=== PATIENT | male | born 1960 | race Caucasian/White ===

== ENCOUNTER 2019-12-02 12:59 | Inpatient (IN) ==
[~2019-12-02 12:59] MED LIST: FAMOTIDINE 20 MG/2 ML VIAL IV ONE
[2019-12-02] MEDS ORDERED: SODIUM CHLORIDE 0.9% 1,000 ML IV STA (13:46)
[2019-12-02] MEDS ORDERED: AZITHROMYCIN INJ 500 MG in SODIUM CHLORIDE 0.9% 250 ML IV STA (13:47)
[2019-12-02] MEDS ORDERED: DEXAMETHASONE 4 MG/1 ML VIAL IV STA (13:48)
[2019-12-02] MEDS ORDERED: FAMOTIDINE 20 MG/2 ML VIAL IV STA (13:48)
[2019-12-02] MEDS ORDERED: CETIRIZINE 10 MG TABLET PO STA (13:48)
[2019-12-02 14:07] LABS: Basophils # 0.1 10*3/uL (0.0-0.2); Basophils % 0.3 % (0.0-0.8); Eosinophils % 0.1 % (0.00-10.9); Hematocrit 42.5 VOL% (42.0-52.0); Hemoglobin 14.4 GM/DL (14.0-18.0); Immature Granulocytes % 0.6 %; Immature Granulocytes Absolute 0.11 #; Lymphocytes # 1.4 10*3/uL (1.4-4.0); Lymphocytes % 7.8 % (21.2-54.2); Mean Corpuscular HGB Conc 33.9 GM/DL (32-36); Mean Corpuscular Volume 88.9 FL (87-102); Mean Platelet Volume 10.3 FL (9.6-12.0); Monocytes % 7.8 % (1.7-12.7); Neutrophils % 83.4 % (38.7-73.9); Platelet Count 232 T/CUMM (130-400); Red Blood Count 4.78 MC/CUMM (3.8-5.5); White Blood Count 18.4 T/CUMM (4-12)
[2019-12-02] MEDS ORDERED: ACETAMINOPHEN 500 MG TABLET PO STA (14:25)
[2019-12-02 14:33] LABS: Albumin 3.5 G/DL (3.4-5.0); Calcium 8.8 MG/DL (8.5-10.1); Ferritin 280.6 ng/ml (26-388); Osmolality,Calculated 265.4 MOS/KG (273-304); Total Protein 7.6 G/DL (6.4-8.3)
[2019-12-02] MEDS ORDERED: ACETAMINOPHEN 500 MG TABLET ONE (14:50)
[2019-12-02] MEDS ORDERED: FAMOTIDINE 20 MG/2 ML VIAL IV ONE (14:51)
[2019-12-02] MEDS ORDERED: NICOTINE 21 MG/24 HR PATCH TRANSDERM PRN (15:19)
[2019-12-02] MEDS ORDERED: ONDANSETRON 4 MG/2 ML VIAL IV PRN (15:19)
[2019-12-02] MEDS ORDERED: GLUCAGON 1 MG VIAL IM PRN (15:19)
[2019-12-02] MEDS ORDERED: DEXTROSE 50% 25 GM/50 ML VIAL IV PRN (15:19)
[2019-12-02] MEDS ORDERED: BISACODYL 5 MG TABLET PO PRN (15:19)
[2019-12-02] MEDS ORDERED: PANTOPRAZOLE 40 MG TABLET PO SCH (15:30)
[2019-12-02 16:39] LABS: ABG Base Excess -0.3 MMOL/L (-2.5-2.5); ABG HCO3 23.6 MMOL/L (20-26); ABG Oxygen Saturation 96.6 % (95-100); ABG PCO2 36.2 MM HG (35-48); ABG PH 7.432 (7.35-7.45); ABG PO2 89.6 MM HG (80-95); ABG TCO2 24.7 MMOL/L (23-27); Allen Test Positive
[2019-12-02] MEDS: cefTRIAXone 1,000 MG in SYRINGE 1 EACH IV SCH (17:10)
[2019-12-02 17:30] LABS: Bilirubin,Urine Negative (Negative); Blood, Urine Negative (Negative); Glucose,Urine (UA) Negative (Negative); Ketones,Urine 20 mg/dL (Negative); Nitrite,Urine Negative (Negative); Protein,Urine Negative; RBC,Urine 2 /HPF (0-4); Urine Appearance CLEAR (Clear); Urine Color Yellow (Yellow); WBC,Urine <1 /HPF (0-6)
[2019-12-02] MEDS: ZINC GLUCONATE 50 MG TABLET PO SCH (17:34)
[2019-12-02] MEDS: ENOXAPARIN 40 MG/0.4 ML SYRINGE SUBCUT SCH (17:34)
[2019-12-02] MEDS: PYRIDOSTIGMINE 60 MG TABLET PO SCH ×2 (17:34→20:41)
[2019-12-02] MEDS: azaTHIOprine 50 MG TABLET PO SCH (20:40)
[2019-12-02] MEDS: ASCORBIC ACID 500 MG TABLET PO SCH (20:41)
[2019-12-02] MEDS: FAMOTIDINE 20 MG TABLET PO SCH (20:41)
[2019-12-03 03:38] LABS: Basophils % 0.1 % (0.0-0.8); Hematocrit 43.3 VOL% (42.0-52.0); Hemoglobin 14.5 GM/DL (14.0-18.0); Immature Granulocytes % 0.8 %; Immature Granulocytes Absolute 0.12 #; Lymphocytes # 0.9 10*3/uL (1.4-4.0); Lymphocytes % 5.9 % (21.2-54.2); Mean Corpuscular HGB Conc 33.5 GM/DL (32-36); Mean Corpuscular Volume 87.8 FL (87-102); Mean Platelet Volume 10.4 FL (9.6-12.0); Monocytes % 5.4 % (1.7-12.7); Neutrophils % 87.8 % (38.7-73.9); Platelet Count 232 T/CUMM (130-400); Red Blood Count 4.93 MC/CUMM (3.8-5.5); Red Cell Distribution Width 13.9 % (9.3-17.3); White Blood Count 14.7 T/CUMM (4-12)
[2019-12-03 04:03] LABS: Albumin 3.2 G/DL (3.4-5.0); Bilirubin,Total 1.1 MG/DL (0.2-1.0); Ferritin 427.7 ng/ml (26-388); Osmolality,Calculated 278.5 MOS/KG (273-304); Total Protein 7.5 G/DL (6.4-8.3)
[2019-12-03] MEDS: LEVOTHYROXINE 100 MCG TABLET PO SCH (06:45)
[2019-12-03] MEDS: ASPIRIN EC 81 MG TABLET PO SCH (08:00)
[2019-12-03] MEDS: PYRIDOSTIGMINE 60 MG TABLET PO SCH ×4 (08:00→20:32)
[2019-12-03] MEDS: FAMOTIDINE 20 MG TABLET PO SCH ×2 (08:00→20:32)
[2019-12-03] MEDS: azaTHIOprine 50 MG TABLET PO SCH ×2 (08:00→20:28)
[2019-12-03] MEDS: ASCORBIC ACID 500 MG TABLET PO SCH ×2 (08:01→20:32)
[2019-12-03] MEDS: CETIRIZINE 10 MG TABLET PO SCH (08:01)
[2019-12-03] MEDS: ZINC GLUCONATE 50 MG TABLET PO SCH (08:01)
[2019-12-03] MEDS ORDERED: REMDESIVIR 200 MG in SODIUM CHLORIDE 0.9% 210 ML IV ONE (09:00)
[2019-12-03] MEDS: DEXAMETHASONE 4 MG/1 ML VIAL IV SCH (09:43)
[2019-12-03] MEDS ORDERED: SODIUM CHLORIDE 0.9% 1,000 ML IV PRN (10:36)
[2019-12-03] MEDS: AZITHROMYCIN INJ 500 MG in SODIUM CHLORIDE 0.9% 250 ML IV SCH (15:58)
[2019-12-03] MEDS: cefTRIAXone 1,000 MG in SYRINGE 1 EACH IV SCH (15:58)
[2019-12-03] MEDS: ENOXAPARIN 40 MG/0.4 ML SYRINGE SUBCUT SCH (20:32)
[2019-12-04] MEDS: ACETAMINOPHEN 325 MG TABLET PO PRN ×2 (00:36→09:37)
[2019-12-04] MEDS: diphenhydrAMINE CAP 25 MG CAPSULE PO PRN (01:13)
[2019-12-04 03:57] LABS: Basophils % 0.1 % (0.0-0.8); Hematocrit 43.7 VOL% (42.0-52.0); Hemoglobin 14.7 GM/DL (14.0-18.0); Immature Granulocytes % 0.8 %; Immature Granulocytes Absolute 0.15 #; Lymphocytes # 0.6 10*3/uL (1.4-4.0); Lymphocytes % 3.3 % (21.2-54.2); Mean Corpuscular HGB Conc 33.6 GM/DL (32-36); Mean Corpuscular Volume 88.5 FL (87-102); Mean Platelet Volume 10.5 FL (9.6-12.0); Neutrophils % 87.8 % (38.7-73.9); Platelet Count 298 T/CUMM (130-400); Red Blood Count 4.94 MC/CUMM (3.8-5.5); Red Cell Distribution Width 13.8 % (9.3-17.3); White Blood Count 19.4 T/CUMM (4-12)
[2019-12-04 04:15] LABS: Albumin 3.4 G/DL (3.4-5.0); Bilirubin,Total 1.3 MG/DL (0.2-1.0); Calcium 8.8 MG/DL (8.5-10.1); Osmolality,Calculated 282.4 MOS/KG (273-304); Total Protein 7.6 G/DL (6.4-8.3)
[2019-12-04 04:29] LABS: Lymphocytes 4 % (20-55); Platelet Estimate Adequate; Segmented Neutrophils 86 % (50-85); Total Cells Counted 100
[2019-12-04] MEDS: LEVOTHYROXINE 100 MCG TABLET PO SCH (06:05)
[2019-12-04] MEDS: PYRIDOSTIGMINE 60 MG TABLET PO SCH ×4 (08:03→22:13)
[2019-12-04] MEDS: ASCORBIC ACID 500 MG TABLET PO SCH ×2 (08:04→22:13)
[2019-12-04] MEDS: FAMOTIDINE 20 MG TABLET PO SCH ×2 (08:05→22:12)
[2019-12-04] MEDS: DEXAMETHASONE 4 MG/1 ML VIAL IV SCH (08:06)
[2019-12-04] MEDS: azaTHIOprine 50 MG TABLET PO SCH ×2 (08:06→22:13)
[2019-12-04] MEDS: ZINC GLUCONATE 50 MG TABLET PO SCH (08:06)
[2019-12-04] MEDS: ASPIRIN EC 81 MG TABLET PO SCH (08:06)
[2019-12-04] MEDS: CETIRIZINE 10 MG TABLET PO SCH (08:09)
[2019-12-04] MEDS: REMDESIVIR 100 MG in SODIUM CHLORIDE 0.9% 230 ML IV SCH (09:38)
[2019-12-04 11:46] LABS: ABG Base Excess 2.4 MMOL/L (-2.5-2.5); ABG HCO3 26.4 MMOL/L (20-26); ABG Oxygen Saturation 95.8 % (95-100); ABG PCO2 38.4 MM HG (35-48); ABG PH 7.444 (7.35-7.45); ABG PO2 78.1 MM HG (80-95); ABG TCO2 22.5 MMOL/L (23-27); Allen Test Positive; Pt O2 Delivery Device Other
[2019-12-04] MEDS: CHOLECALCIFEROL 400 UNIT TABLET PO SCH (13:17)
[2019-12-04] MEDS ORDERED: AZITHROMYCIN INJ 500 MG in SODIUM CHLORIDE 0.9% 250 ML IV SCH (18:00)
[2019-12-04] MEDS: AZITHROMYCIN INJ 500 MG in SODIUM CHLORIDE 0.9% 250 ML IV SCH (18:15)
[2019-12-04] MEDS: cefTRIAXone 1,000 MG in SYRINGE 1 EACH IV SCH (18:20)
[2019-12-04 18:33] VITALS: BP 160/88
[2019-12-04] MEDS: ENOXAPARIN 40 MG/0.4 ML SYRINGE SUBCUT SCH (22:13)
[2019-12-04] MEDS: guaiFENesin/DM ER 600-30 MG TABLET PO PRN (22:24)
[2019-12-05 05:12] LABS: Basophils % 0.2 % (0.0-0.8); Eosinophils % 0.1 % (0.00-10.9); Hematocrit 41.8 VOL% (42.0-52.0); Hemoglobin 13.6 GM/DL (14.0-18.0); Immature Granulocytes % 1.2 %; Immature Granulocytes Absolute 0.21 #; Lymphocytes # 1.3 10*3/uL (1.4-4.0); Lymphocytes % 7.6 % (21.2-54.2); Mean Corpuscular HGB Conc 32.5 GM/DL (32-36); Mean Corpuscular Volume 90.1 FL (87-102); Mean Platelet Volume 10.7 FL (9.6-12.0); Monocytes % 10.8 % (1.7-12.7); Neutrophils % 80.1 % (38.7-73.9); Platelet Count 304 T/CUMM (130-400); Red Blood Count 4.64 MC/CUMM (3.8-5.5); White Blood Count 17.5 T/CUMM (4-12)
[2019-12-05 05:43] LABS: Ferritin 514.7 ng/ml (26-388)
[2019-12-05 05:49] LABS: Albumin 3.1 G/DL (3.4-5.0); Bilirubin,Total 1.4 MG/DL (0.2-1.0); Calcium 8.7 MG/DL (8.5-10.1); Total Protein 6.5 G/DL (6.4-8.3)
[2019-12-05] MEDS: LEVOTHYROXINE 100 MCG TABLET PO SCH (06:40)
[2019-12-05 08:25] LABS: ABG Base Excess 3.4 MMOL/L (-2.5-2.5); ABG HCO3 27.3 MMOL/L (20-26); ABG PCO2 40.1 MM HG (35-48); ABG PH 7.446 (7.35-7.45); ABG PO2 59.7 MM HG (80-95); ABG TCO2 23.6 MMOL/L (23-27); Pt O2 Delivery Device Other
[2019-12-05] MEDS: CHOLECALCIFEROL 400 UNIT TABLET PO SCH (08:38)
[2019-12-05] MEDS: CETIRIZINE 10 MG TABLET PO SCH (08:38)
[2019-12-05] MEDS: ZINC GLUCONATE 50 MG TABLET PO SCH (08:38)
[2019-12-05] MEDS: ASCORBIC ACID 500 MG TABLET PO SCH ×2 (08:38→21:00)
[2019-12-05] MEDS: ASPIRIN EC 81 MG TABLET PO SCH (08:38)
[2019-12-05] MEDS: azaTHIOprine 50 MG TABLET PO SCH ×2 (08:38→21:00)
[2019-12-05] MEDS: FAMOTIDINE 20 MG TABLET PO SCH ×2 (08:38→21:00)
[2019-12-05] MEDS: PYRIDOSTIGMINE 60 MG TABLET PO SCH ×4 (08:38→21:00)
[2019-12-05] MEDS: DEXAMETHASONE 4 MG/1 ML VIAL IV SCH (08:39)
[2019-12-05] MEDS: REMDESIVIR 100 MG in SODIUM CHLORIDE 0.9% 230 ML IV SCH (09:22)
[2019-12-05] MEDS: ENOXAPARIN 40 MG/0.4 ML SYRINGE SUBCUT SCH ×2 (12:06→21:00)
[2019-12-05] MEDS: cefTRIAXone 1,000 MG in SYRINGE 1 EACH IV SCH (17:23)
[2019-12-06 03:22] LABS: ABG Base Excess 3.7 MMOL/L (-2.5-2.5); ABG HCO3 27.4 MMOL/L (20-26); ABG Oxygen Saturation 87.2 % (95-100); ABG PCO2 39.7 MM HG (35-48); ABG PH 7.453 (7.35-7.45); ABG PO2 53.9 MM HG (80-95); ABG TCO2 23.5 MMOL/L (23-27); Allen Test Positive; Pt O2 Delivery Device Other
[2019-12-06] MEDS ORDERED: FUROSEMIDE 40 MG/4 ML VIAL IV ONE (03:30)
[2019-12-06] MEDS: ALBUTEROL INHALER 18 GM INH SCH ×4 (04:26→18:38)
[2019-12-06 04:47] LABS: Basophils # 0.1 10*3/uL (0.0-0.2); Basophils % 0.3 % (0.0-0.8); Eosinophils % 0.1 % (0.00-10.9); Hematocrit 45.2 VOL% (42.0-52.0); Hemoglobin 15.1 GM/DL (14.0-18.0); Immature Granulocytes % 1.2 %; Immature Granulocytes Absolute 0.23 #; Lymphocytes # 1.4 10*3/uL (1.4-4.0); Lymphocytes % 6.9 % (21.2-54.2); Mean Corpuscular HGB Conc 33.4 GM/DL (32-36); Mean Corpuscular Volume 88.6 FL (87-102); Mean Platelet Volume 10.9 FL (9.6-12.0); Monocytes % 10.4 % (1.7-12.7); Neutrophils % 81.1 % (38.7-73.9); Platelet Count 278 T/CUMM (130-400); Red Cell Distribution Width 13.7 % (9.3-17.3); White Blood Count 19.8 T/CUMM (4-12)
[2019-12-06 05:14] LABS: Albumin 2.9 G/DL (3.4-5.0); Bilirubin,Total 0.7 MG/DL (0.2-1.0); Calcium 8.9 MG/DL (8.5-10.1); Total Protein 7.4 G/DL (6.4-8.3)
[2019-12-06 05:15] LABS: Osmolality,Calculated 275.8 MOS/KG (273-304)
[2019-12-06] MEDS: LORazepam 2 MG/1 ML VIAL IV PRN (06:30)
[2019-12-06] MEDS: LEVOTHYROXINE 100 MCG TABLET PO SCH (06:38)
[2019-12-06] MEDS: DEXAMETHASONE 4 MG/1 ML VIAL IV SCH (10:01)
[2019-12-06] MEDS: FAMOTIDINE 20 MG TABLET PO SCH ×2 (10:02→21:54)
[2019-12-06] MEDS: ENOXAPARIN 40 MG/0.4 ML SYRINGE SUBCUT SCH (10:02)
[2019-12-06] MEDS: ZINC GLUCONATE 50 MG TABLET PO SCH (10:02)
[2019-12-06] MEDS: PYRIDOSTIGMINE 60 MG TABLET PO SCH ×4 (10:03→21:53)
[2019-12-06] MEDS: CHOLECALCIFEROL 400 UNIT TABLET PO SCH (10:03)
[2019-12-06] MEDS: ASPIRIN EC 81 MG TABLET PO SCH (10:03)
[2019-12-06] MEDS: ASCORBIC ACID 500 MG TABLET PO SCH ×2 (10:03→21:54)
[2019-12-06] MEDS: azaTHIOprine 50 MG TABLET PO SCH ×2 (10:03→21:53)
[2019-12-06] MEDS: CETIRIZINE 10 MG TABLET PO SCH (10:03)
[2019-12-06] MEDS: REMDESIVIR 100 MG in SODIUM CHLORIDE 0.9% 230 ML IV SCH (10:04)
[2019-12-06] MEDS: cefTRIAXone 1,000 MG in SYRINGE 1 EACH IV SCH (18:38)
[2019-12-06] MEDS: ENOXAPARIN 80 MG/0.8 ML SYRINGE SUBCUT SCH (21:53)
[2019-12-07] MEDS: ALBUTEROL INHALER 18 GM INH SCH ×4 (01:00→20:20)
[2019-12-07 05:02] LABS: ABG Base Excess 3.5 MMOL/L (-2.5-2.5); ABG HCO3 27.1 MMOL/L (20-26); ABG PCO2 37.8 MM HG (35-48); ABG PH 7.473 (7.35-7.45); ABG PO2 76.4 MM HG (80-95); ABG TCO2 28.2 MMOL/L (23-27); Allen Test Positive; Pt O2 Delivery Device BIPAP
[2019-12-07] MEDS: LEVOTHYROXINE 100 MCG TABLET PO SCH (06:13)
[2019-12-07 06:28] LABS: Calcium 9.5 MG/DL (8.5-10.1); Osmolality,Calculated 278.8 MOS/KG (273-304)
[2019-12-07 06:33] LABS: Basophils # 0.1 10*3/uL (0.0-0.2); Basophils % 0.3 % (0.0-0.8); Eosinophils % 0.1 % (0.00-10.9); Hematocrit 46.8 VOL% (42.0-52.0); Hemoglobin 15.7 GM/DL (14.0-18.0); Immature Granulocytes % 1.6 %; Immature Granulocytes Absolute 0.32 #; Lymphocytes # 1.5 10*3/uL (1.4-4.0); Lymphocytes % 7.5 % (21.2-54.2); Mean Corpuscular HGB Conc 33.5 GM/DL (32-36); Mean Corpuscular Volume 89.3 FL (87-102); Mean Platelet Volume 10.9 FL (9.6-12.0); Monocytes % 8.8 % (1.7-12.7); Neutrophils % 81.7 % (38.7-73.9); Platelet Count 325 T/CUMM (130-400); Red Blood Count 5.24 MC/CUMM (3.8-5.5); Red Cell Distribution Width 13.9 % (9.3-17.3); White Blood Count 19.8 T/CUMM (4-12)
[2019-12-07 08:17] LABS: Atypical Lymphocytes Few; Band Neutrophils 1 % (0-10); Lymphocytes 13 % (20-55); Platelet Estimate Normal; Polychromasia Slight; Segmented Neutrophils 76 % (50-85); Tear Drop Cells Few; Total Cells Counted 100
[2019-12-07] MEDS: ENOXAPARIN 80 MG/0.8 ML SYRINGE SUBCUT SCH ×2 (08:30→20:25)
[2019-12-07] MEDS: DEXAMETHASONE 4 MG/1 ML VIAL IV SCH (08:30)
[2019-12-07] MEDS: ASCORBIC ACID 500 MG TABLET PO SCH ×2 (08:31→20:20)
[2019-12-07] MEDS: ZINC GLUCONATE 50 MG TABLET PO SCH (08:31)
[2019-12-07] MEDS: CHOLECALCIFEROL 400 UNIT TABLET PO SCH (08:31)
[2019-12-07] MEDS: FAMOTIDINE 20 MG TABLET PO SCH ×2 (08:31→20:20)
[2019-12-07] MEDS: PYRIDOSTIGMINE 60 MG TABLET PO SCH ×4 (08:31→20:20)
[2019-12-07] MEDS: ASPIRIN EC 81 MG TABLET PO SCH (08:31)
[2019-12-07] MEDS: azaTHIOprine 50 MG TABLET PO SCH ×2 (08:31→20:20)
[2019-12-07] MEDS: CETIRIZINE 10 MG TABLET PO SCH (08:35)
[2019-12-07] MEDS ORDERED: FUROSEMIDE 40 MG/4 ML VIAL IV ONE (08:38)
[2019-12-07] MEDS: REMDESIVIR 100 MG in SODIUM CHLORIDE 0.9% 230 ML IV SCH (11:02)
[2019-12-07] MEDS: NYSTATIN 500,000 UNIT/5 ML UDCUP SWISH/SWAL SCH ×3 (12:35→20:23)
[2019-12-07] MEDS: cefTRIAXone 1,000 MG in SYRINGE 1 EACH IV SCH (17:15)
[2019-12-08 03:55] LABS: Basophils # 0.1 10*3/uL (0.0-0.2); Basophils % 0.3 % (0.0-0.8); Eosinophils % 0.1 % (0.00-10.9); Hemoglobin 16.1 GM/DL (14.0-18.0); Immature Granulocytes % 2.8 %; Immature Granulocytes Absolute 0.53 #; Lymphocytes # 1.3 10*3/uL (1.4-4.0); Lymphocytes % 7.1 % (21.2-54.2); Mean Corpuscular HGB Conc 33.5 GM/DL (32-36); Mean Corpuscular Volume 89.9 FL (87-102); Mean Platelet Volume 10.8 FL (9.6-12.0); Monocytes % 5.2 % (1.7-12.7); Neutrophils % 84.5 % (38.7-73.9); Platelet Count 337 T/CUMM (130-400); Red Blood Count 5.34 MC/CUMM (3.8-5.5); Red Cell Distribution Width 13.7 % (9.3-17.3); White Blood Count 18.9 T/CUMM (4-12)
[2019-12-08 04:23] LABS: Albumin 2.8 G/DL (3.4-5.0); Bilirubin,Total 0.9 MG/DL (0.2-1.0); Calcium 9.4 MG/DL (8.5-10.1); Osmolality,Calculated 279.8 MOS/KG (273-304); Total Protein 7.9 G/DL (6.4-8.3)
[2019-12-08 04:51] LABS: Allen Test Positive; Pt O2 Delivery Device BIPAP
[2019-12-08 04:52] LABS: ABG Base Excess 2.9 MMOL/L (-2.5-2.5); ABG HCO3 25.8 MMOL/L (20-26); ABG Oxygen Saturation 91.8 % (95-100); ABG PCO2 34.6 MM HG (35-48); ABG PO2 62.4 MM HG (80-95); ABG TCO2 26.8 MMOL/L (23-27)
[2019-12-08] MEDS: ALBUTEROL INHALER 18 GM INH SCH ×4 (05:24→20:10)
[2019-12-08] MEDS: LEVOTHYROXINE 100 MCG TABLET PO SCH (06:45)
[2019-12-08] MEDS: CHOLECALCIFEROL 400 UNIT TABLET PO SCH (08:51)
[2019-12-08] MEDS: azaTHIOprine 50 MG TABLET PO SCH ×2 (08:51→20:11)
[2019-12-08] MEDS: NYSTATIN 500,000 UNIT/5 ML UDCUP SWISH/SWAL SCH ×4 (08:51→20:11)
[2019-12-08] MEDS: ASCORBIC ACID 500 MG TABLET PO SCH ×2 (08:51→20:10)
[2019-12-08] MEDS: PYRIDOSTIGMINE 60 MG TABLET PO SCH ×4 (08:51→20:10)
[2019-12-08] MEDS: FAMOTIDINE 20 MG TABLET PO SCH ×2 (08:52→20:10)
[2019-12-08] MEDS: DEXAMETHASONE 4 MG/1 ML VIAL IV SCH (08:52)
[2019-12-08] MEDS: ENOXAPARIN 80 MG/0.8 ML SYRINGE SUBCUT SCH ×2 (08:52→20:11)
[2019-12-08] MEDS: ZINC GLUCONATE 50 MG TABLET PO SCH (08:52)
[2019-12-08] MEDS: ASPIRIN EC 81 MG TABLET PO SCH (08:52)
[2019-12-08] MEDS: CETIRIZINE 10 MG TABLET PO SCH (08:53)
[2019-12-08 09:34] LABS: Lymphocytes 6 % (20-55); Platelet Estimate Normal; Polychromasia Slight; Segmented Neutrophils 90 % (50-85); Total Cells Counted 100
[2019-12-08] MEDS: cefTRIAXone 1,000 MG in SYRINGE 1 EACH IV SCH (18:25)
[2019-12-09] MEDS: ALBUTEROL INHALER 18 GM INH SCH ×4 (00:57→19:00)
[2019-12-09 04:52] LABS: ABG Base Excess 3.9 MMOL/L (-2.5-2.5); ABG HCO3 27.6 MMOL/L (20-26); ABG Oxygen Saturation 86.5 % (95-100); ABG PCO2 36.4 MM HG (35-48); ABG PH 7.482 (7.35-7.45); ABG PO2 53.2 MM HG (80-95); Allen Test Positive; Pt O2 Delivery Device BIPAP
[2019-12-09 05:45] LABS: Basophils # 0.1 10*3/uL (0.0-0.2); Basophils % 0.4 % (0.0-0.8); Eosinophils % 0.1 % (0.00-10.9); Hematocrit 45.8 VOL% (42.0-52.0); Hemoglobin 15.3 GM/DL (14.0-18.0); Immature Granulocytes % 2.7 %; Immature Granulocytes Absolute 0.53 #; Lymphocytes # 1.1 10*3/uL (1.4-4.0); Lymphocytes % 5.5 % (21.2-54.2); Mean Corpuscular HGB Conc 33.4 GM/DL (32-36); Mean Corpuscular Volume 90.5 FL (87-102); Mean Platelet Volume 10.4 FL (9.6-12.0); Monocytes % 3.5 % (1.7-12.7); Neutrophils % 87.8 % (38.7-73.9); Platelet Count 330 T/CUMM (130-400); Red Blood Count 5.06 MC/CUMM (3.8-5.5); Red Cell Distribution Width 13.5 % (9.3-17.3); White Blood Count 19.4 T/CUMM (4-12)
[2019-12-09 06:17] LABS: Calcium 9.4 MG/DL (8.5-10.1); Osmolality,Calculated 270.2 MOS/KG (273-304)
[2019-12-09 06:19] LABS: Hypochromasia Slight; Lymphocytes 9 % (20-55); Microcytosis Slight; Platelet Estimate Adequate; Segmented Neutrophils 86 % (50-85); Total Cells Counted 100
[2019-12-09] MEDS: ENOXAPARIN 80 MG/0.8 ML SYRINGE SUBCUT SCH ×2 (08:32→20:52)
[2019-12-09] MEDS: NYSTATIN 500,000 UNIT/5 ML UDCUP SWISH/SWAL SCH ×4 (08:32→20:52)
[2019-12-09] MEDS: DEXAMETHASONE 4 MG/1 ML VIAL IV SCH (08:32)
[2019-12-09] MEDS: FAMOTIDINE 20 MG TABLET PO SCH ×2 (08:33→20:52)
[2019-12-09] MEDS: ZINC GLUCONATE 50 MG TABLET PO SCH (08:33)
[2019-12-09] MEDS: ASCORBIC ACID 500 MG TABLET PO SCH ×2 (08:33→20:52)
[2019-12-09] MEDS: azaTHIOprine 50 MG TABLET PO SCH ×2 (08:33→20:52)
[2019-12-09] MEDS: LEVOTHYROXINE 100 MCG TABLET PO SCH (08:33)
[2019-12-09] MEDS: PYRIDOSTIGMINE 60 MG TABLET PO SCH ×4 (08:33→20:52)
[2019-12-09] MEDS: ASPIRIN EC 81 MG TABLET PO SCH (08:33)
[2019-12-09] MEDS: CHOLECALCIFEROL 400 UNIT TABLET PO SCH (08:33)
[2019-12-09] MEDS: CETIRIZINE 10 MG TABLET PO SCH (08:34)
[2019-12-09] MEDS: cefTRIAXone 1,000 MG in SYRINGE 1 EACH IV SCH (17:08)
[2019-12-10] MEDS: LORazepam 2 MG/1 ML VIAL IV PRN (00:55)
[2019-12-10] MEDS: ALBUTEROL INHALER 18 GM INH SCH ×4 (01:19→21:29)
[2019-12-10 04:03] LABS: Basophils # 0.1 10*3/uL (0.0-0.2); Basophils % 0.2 % (0.0-0.8); Eosinophils % 0.1 % (0.00-10.9); Hematocrit 44.9 VOL% (42.0-52.0); Immature Granulocytes % 2.5 %; Immature Granulocytes Absolute 0.56 #; Lymphocytes # 1.5 10*3/uL (1.4-4.0); Lymphocytes % 6.5 % (21.2-54.2); Mean Corpuscular HGB Conc 33.4 GM/DL (32-36); Mean Corpuscular Volume 88.7 FL (87-102); Mean Platelet Volume 10.4 FL (9.6-12.0); Monocytes % 2.5 % (1.7-12.7); Neutrophils % 88.2 % (38.7-73.9); Platelet Count 398 T/CUMM (130-400); Red Blood Count 5.06 MC/CUMM (3.8-5.5); Red Cell Distribution Width 13.6 % (9.3-17.3); White Blood Count 22.7 T/CUMM (4-12)
[2019-12-10 04:28] LABS: Lymphocytes 6 % (20-55); Platelet Estimate Adequate; Segmented Neutrophils 94 % (50-85); Total Cells Counted 100
[2019-12-10 04:29] LABS: Microcytosis Slight
[2019-12-10 04:44] LABS: Albumin 2.4 G/DL (3.4-5.0); Bilirubin,Total 0.9 MG/DL (0.2-1.0); Calcium 8.8 MG/DL (8.5-10.1); Total Protein 7.8 G/DL (6.4-8.3)
[2019-12-10] MEDS: LEVOTHYROXINE 100 MCG TABLET PO SCH (06:32)
[2019-12-10] MEDS: CETIRIZINE 10 MG TABLET PO SCH (09:02)
[2019-12-10] MEDS: CHOLECALCIFEROL 400 UNIT TABLET PO SCH (09:02)
[2019-12-10] MEDS: ASPIRIN EC 81 MG TABLET PO SCH (09:02)
[2019-12-10] MEDS: azaTHIOprine 50 MG TABLET PO SCH ×2 (09:02→21:30)
[2019-12-10] MEDS: FAMOTIDINE 20 MG TABLET PO SCH ×2 (09:02→21:30)
[2019-12-10] MEDS: NYSTATIN 500,000 UNIT/5 ML UDCUP SWISH/SWAL SCH ×4 (09:02→21:29)
[2019-12-10] MEDS: ZINC GLUCONATE 50 MG TABLET PO SCH (09:02)
[2019-12-10] MEDS: DEXAMETHASONE 4 MG/1 ML VIAL IV SCH (09:02)
[2019-12-10] MEDS: ENOXAPARIN 80 MG/0.8 ML SYRINGE SUBCUT SCH ×2 (09:05→21:29)
[2019-12-10] MEDS: PYRIDOSTIGMINE 60 MG TABLET PO SCH ×4 (09:05→21:30)
[2019-12-10] MEDS: ASCORBIC ACID 500 MG TABLET PO SCH ×3 (10:31→21:29)
[2019-12-10] MEDS ORDERED: FUROSEMIDE 40 MG/4 ML VIAL IV ONE (14:02)
[2019-12-11] MEDS: ALBUTEROL INHALER 18 GM INH SCH ×4 (03:56→20:55)
[2019-12-11 05:10] LABS: Basophils % 0.2 % (0.0-0.8); Eosinophils % 0.1 % (0.00-10.9); Hematocrit 45.3 VOL% (42.0-52.0); Immature Granulocytes % 2.4 %; Immature Granulocytes Absolute 0.44 #; Lymphocytes # 0.9 10*3/uL (1.4-4.0); Lymphocytes % 4.7 % (21.2-54.2); Mean Corpuscular HGB Conc 33.1 GM/DL (32-36); Mean Corpuscular Volume 89.7 FL (87-102); Mean Platelet Volume 10.4 FL (9.6-12.0); Monocytes % 3.3 % (1.7-12.7); Neutrophils % 89.3 % (38.7-73.9); Platelet Count 346 T/CUMM (130-400); Red Blood Count 5.05 MC/CUMM (3.8-5.5); Red Cell Distribution Width 13.6 % (9.3-17.3); White Blood Count 18.2 T/CUMM (4-12)
[2019-12-11 05:37] LABS: Eosinophils 1 % (0-10); Lymphocytes 4 % (20-55); Platelet Estimate Adequate; Segmented Neutrophils 90 % (50-85); Total Cells Counted 100
[2019-12-11] MEDS: LEVOTHYROXINE 100 MCG TABLET PO SCH (06:17)
[2019-12-11] MEDS: ASPIRIN EC 81 MG TABLET PO SCH (08:45)
[2019-12-11] MEDS: NYSTATIN 500,000 UNIT/5 ML UDCUP SWISH/SWAL SCH ×4 (08:45→20:55)
[2019-12-11] MEDS: DEXAMETHASONE 4 MG/1 ML VIAL IV SCH (08:45)
[2019-12-11] MEDS: CHOLECALCIFEROL 400 UNIT TABLET PO SCH (08:45)
[2019-12-11] MEDS: ZINC GLUCONATE 50 MG TABLET PO SCH (08:45)
[2019-12-11] MEDS: azaTHIOprine 50 MG TABLET PO SCH ×2 (08:45→20:55)
[2019-12-11] MEDS: FAMOTIDINE 20 MG TABLET PO SCH ×2 (08:45→20:55)
[2019-12-11] MEDS: CETIRIZINE 10 MG TABLET PO SCH (08:45)
[2019-12-11] MEDS: ENOXAPARIN 80 MG/0.8 ML SYRINGE SUBCUT SCH ×2 (08:45→20:54)
[2019-12-11] MEDS: PYRIDOSTIGMINE 60 MG TABLET PO SCH ×4 (08:45→20:55)
[2019-12-11] MEDS: ASCORBIC ACID 500 MG TABLET PO SCH ×3 (08:45→20:55)
[2019-12-11] MEDS: CHOLESTYRAMINE 4 GM PACK PO SCH (12:57)
[2019-12-12] MEDS: ALBUTEROL INHALER 18 GM INH SCH ×4 (02:03→20:08)
[2019-12-12 03:57] LABS: Basophils % 0.2 % (0.0-0.8); Eosinophils % 0.1 % (0.00-10.9); Hematocrit 47.5 VOL% (42.0-52.0); Hemoglobin 15.6 GM/DL (14.0-18.0); Immature Granulocytes % 1.9 %; Immature Granulocytes Absolute 0.36 #; Lymphocytes # 0.9 10*3/uL (1.4-4.0); Lymphocytes % 4.6 % (21.2-54.2); Mean Corpuscular HGB Conc 32.8 GM/DL (32-36); Mean Corpuscular Volume 90.1 FL (87-102); Mean Platelet Volume 10.5 FL (9.6-12.0); Monocytes % 3.4 % (1.7-12.7); Neutrophils % 89.8 % (38.7-73.9); Platelet Count 413 T/CUMM (130-400); Red Blood Count 5.27 MC/CUMM (3.8-5.5); Red Cell Distribution Width 13.4 % (9.3-17.3)
[2019-12-12 04:21] LABS: Calcium 9.3 MG/DL (8.5-10.1); Osmolality,Calculated 276.1 MOS/KG (273-304)
[2019-12-12 04:43] LABS: Band Neutrophils 1 % (0-10); Lymphocytes 5 % (20-55); Platelet Estimate Increased; Segmented Neutrophils 91 % (50-85); Total Cells Counted 100
[2019-12-12 04:46] LABS: ABG Base Excess 2.8 MMOL/L (-2.5-2.5); ABG HCO3 26.7 MMOL/L (20-26); ABG Oxygen Saturation 89.6 % (95-100); ABG PH 7.469 (7.35-7.45); ABG PO2 60.5 MM HG (80-95); ABG TCO2 21.9 MMOL/L (23-27)
[2019-12-12 04:47] LABS: Allen Test Positive; Pt O2 Delivery Device BIPAP
[2019-12-12] MEDS: LEVOTHYROXINE 100 MCG TABLET PO SCH (07:06)
[2019-12-12] MEDS: ENOXAPARIN 80 MG/0.8 ML SYRINGE SUBCUT SCH ×2 (08:00→20:13)
[2019-12-12] MEDS: CETIRIZINE 10 MG TABLET PO SCH (08:00)
[2019-12-12] MEDS: CHOLECALCIFEROL 400 UNIT TABLET PO SCH (08:00)
[2019-12-12] MEDS: azaTHIOprine 50 MG TABLET PO SCH ×2 (08:00→20:09)
[2019-12-12] MEDS: CHOLESTYRAMINE 4 GM PACK PO SCH (08:00)
[2019-12-12] MEDS: FAMOTIDINE 20 MG TABLET PO SCH ×2 (08:00→20:08)
[2019-12-12] MEDS: NYSTATIN 500,000 UNIT/5 ML UDCUP SWISH/SWAL SCH ×4 (08:00→20:09)
[2019-12-12] MEDS: ZINC GLUCONATE 50 MG TABLET PO SCH (08:00)
[2019-12-12] MEDS: PYRIDOSTIGMINE 60 MG TABLET PO SCH ×4 (08:00→20:08)
[2019-12-12] MEDS: DEXAMETHASONE 4 MG/1 ML VIAL IV SCH (08:00)
[2019-12-12] MEDS: ASPIRIN EC 81 MG TABLET PO SCH (08:00)
[2019-12-12] MEDS ORDERED: HydrOXYzine PAMOATE 50 MG CAPSULE PO PRN (11:54)
[2019-12-12] MEDS: ASCORBIC ACID 500 MG TABLET PO SCH ×2 (12:55→20:09)
[2019-12-12] MEDS: methylPREDNISolone SOD SUC 40 MG/1 ML VIAL IV SCH ×2 (12:55→20:08)
[2019-12-12] MEDS: MIRTAZAPINE 15 MG TABLET PO SCH (20:08)
[2019-12-13] MEDS: diphenhydrAMINE CAP 25 MG CAPSULE PO PRN (01:00)
[2019-12-13] MEDS: ALBUTEROL INHALER 18 GM INH SCH ×4 (01:51→19:00)
[2019-12-13] MEDS: methylPREDNISolone SOD SUC 40 MG/1 ML VIAL IV SCH ×3 (03:31→19:00)
[2019-12-13] MEDS: LEVOTHYROXINE 100 MCG TABLET PO SCH (06:09)
[2019-12-13] MEDS: ENOXAPARIN 80 MG/0.8 ML SYRINGE SUBCUT SCH ×2 (08:00→20:09)
[2019-12-13] MEDS: CETIRIZINE 10 MG TABLET PO SCH (08:00)
[2019-12-13] MEDS: FAMOTIDINE 20 MG TABLET PO SCH ×2 (08:00→20:09)
[2019-12-13] MEDS: CHOLESTYRAMINE 4 GM PACK PO SCH (08:00)
[2019-12-13] MEDS: ASPIRIN EC 81 MG TABLET PO SCH (08:00)
[2019-12-13] MEDS: NYSTATIN 500,000 UNIT/5 ML UDCUP SWISH/SWAL SCH ×4 (08:00→21:02)
[2019-12-13] MEDS: ASCORBIC ACID 500 MG TABLET PO SCH ×2 (08:01→20:10)
[2019-12-13] MEDS: ESCITALOPRAM 10 MG TABLET PO SCH (08:01)
[2019-12-13] MEDS: PYRIDOSTIGMINE 60 MG TABLET PO SCH ×4 (08:01→20:10)
[2019-12-13] MEDS: CHOLECALCIFEROL 400 UNIT TABLET PO SCH (08:01)
[2019-12-13] MEDS: azaTHIOprine 50 MG TABLET PO SCH ×2 (08:01→20:10)
[2019-12-13] MEDS: ZINC GLUCONATE 50 MG TABLET PO SCH (08:04)
[2019-12-13] MEDS: CLOTRIMAZOLE/BETAMETHASONE CREAM 15 GM TUBE TOP SCH (20:10)
[2019-12-13] MEDS: MIRTAZAPINE 15 MG TABLET PO SCH (20:10)
[2019-12-14] MEDS: methylPREDNISolone SOD SUC 40 MG/1 ML VIAL IV SCH ×3 (03:24→18:08)
[2019-12-14 04:14] LABS: Basophils % 0.2 % (0.0-0.8); Hematocrit 47.1 VOL% (42.0-52.0); Immature Granulocytes % 3.5 %; Immature Granulocytes Absolute 0.65 #; Lymphocytes # 0.8 10*3/uL (1.4-4.0); Lymphocytes % 4.4 % (21.2-54.2); Mean Corpuscular Volume 87.1 FL (87-102); Mean Platelet Volume 10.3 FL (9.6-12.0); Monocytes % 5.3 % (1.7-12.7); Neutrophils % 86.6 % (38.7-73.9); Platelet Count 453 T/CUMM (130-400); Red Blood Count 5.41 MC/CUMM (3.8-5.5); Red Cell Distribution Width 13.2 % (9.3-17.3); White Blood Count 18.5 T/CUMM (4-12)
[2019-12-14 04:43] LABS: Lymphocytes 5 % (20-55); Platelet Estimate Adequate; Segmented Neutrophils 92 % (50-85); Total Cells Counted 100
[2019-12-14 04:51] LABS: Osmolality,Calculated 268.7 MOS/KG (273-304)
[2019-12-14] MEDS: LEVOTHYROXINE 100 MCG TABLET PO SCH (06:48)
[2019-12-14] MEDS: ALBUTEROL INHALER 18 GM INH SCH ×4 (06:49→18:07)
[2019-12-14] MEDS: ASPIRIN EC 81 MG TABLET PO SCH (08:54)
[2019-12-14] MEDS: PYRIDOSTIGMINE 60 MG TABLET PO SCH ×4 (08:54→21:57)
[2019-12-14] MEDS: ESCITALOPRAM 10 MG TABLET PO SCH (08:54)
[2019-12-14] MEDS: FAMOTIDINE 20 MG TABLET PO SCH ×2 (08:54→21:59)
[2019-12-14] MEDS: ZINC GLUCONATE 50 MG TABLET PO SCH (08:54)
[2019-12-14] MEDS: CHOLESTYRAMINE 4 GM PACK PO SCH (08:54)
[2019-12-14] MEDS: CHOLECALCIFEROL 400 UNIT TABLET PO SCH (08:54)
[2019-12-14] MEDS: CETIRIZINE 10 MG TABLET PO SCH (08:54)
[2019-12-14] MEDS: azaTHIOprine 50 MG TABLET PO SCH ×2 (08:54→21:57)
[2019-12-14] MEDS: ENOXAPARIN 80 MG/0.8 ML SYRINGE SUBCUT SCH ×2 (08:54→21:57)
[2019-12-14] MEDS: CLOTRIMAZOLE/BETAMETHASONE CREAM 15 GM TUBE TOP SCH ×2 (08:54→21:58)
[2019-12-14] MEDS: NYSTATIN 500,000 UNIT/5 ML UDCUP SWISH/SWAL SCH ×4 (09:45→21:57)
[2019-12-14] MEDS: guaiFENesin/DM ER 600-30 MG TABLET PO PRN (09:50)
[2019-12-14] MEDS ORDERED: FUROSEMIDE 40 MG TABLET PO ONE (10:57)
[2019-12-14] MEDS: ALPRAZolam 0.25 MG TABLET PO PRN ×2 (12:28→21:57)
[2019-12-14] MEDS: ASCORBIC ACID 500 MG TABLET PO SCH ×2 (12:28→21:57)
[2019-12-14] MEDS: MIRTAZAPINE 15 MG TABLET PO SCH (21:57)
[2019-12-15] MEDS: methylPREDNISolone SOD SUC 40 MG/1 ML VIAL IV SCH ×3 (03:11→18:28)
[2019-12-15] MEDS: ALBUTEROL INHALER 18 GM INH SCH ×4 (03:12→22:19)
[2019-12-15 03:54] LABS: Basophils # 0.1 10*3/uL (0.0-0.2); Basophils % 0.2 % (0.0-0.8); Hematocrit 50.3 VOL% (42.0-52.0); Hemoglobin 16.8 GM/DL (14.0-18.0); Immature Granulocytes % 1.6 %; Immature Granulocytes Absolute 0.44 #; Lymphocytes # 0.9 10*3/uL (1.4-4.0); Lymphocytes % 3.3 % (21.2-54.2); Mean Corpuscular HGB Conc 33.4 GM/DL (32-36); Mean Corpuscular Volume 87.9 FL (87-102); Monocytes % 5.3 % (1.7-12.7); Neutrophils % 89.6 % (38.7-73.9); Platelet Count 505 T/CUMM (130-400); Red Blood Count 5.72 MC/CUMM (3.8-5.5); Red Cell Distribution Width 13.1 % (9.3-17.3); White Blood Count 27.3 T/CUMM (4-12)
[2019-12-15 04:11] LABS: Calcium 9.2 MG/DL (8.5-10.1); Osmolality,Calculated 276.2 MOS/KG (273-304)
[2019-12-15 04:24] LABS: ABG Base Excess 2.2 MMOL/L (-2.5-2.5); ABG HCO3 25.9 MMOL/L (20-26); ABG Oxygen Saturation 89.6 % (95-100); ABG PCO2 37.7 MM HG (35-48); ABG PH 7.455 (7.35-7.45); ABG PO2 58.2 MM HG (80-95); ABG TCO2 27.1 MMOL/L (23-27); Allen Test Positive; Pt O2 Delivery Device BIPAP
[2019-12-15 04:26] LABS: Band Neutrophils 1 % (0-10); Lymphocytes 5 % (20-55); Metamyelocytes 1 %; Segmented Neutrophils 87 % (50-85); Total Cells Counted 100
[2019-12-15 04:27] LABS: Platelet Estimate Increased
[2019-12-15] MEDS: LEVOTHYROXINE 100 MCG TABLET PO SCH (06:38)
[2019-12-15] MEDS: ENOXAPARIN 80 MG/0.8 ML SYRINGE SUBCUT SCH (09:01)
[2019-12-15] MEDS: FAMOTIDINE 20 MG TABLET PO SCH ×2 (09:02→20:39)
[2019-12-15] MEDS: ASPIRIN EC 81 MG TABLET PO SCH (09:02)
[2019-12-15] MEDS: NYSTATIN 500,000 UNIT/5 ML UDCUP SWISH/SWAL SCH ×4 (09:02→20:39)
[2019-12-15] MEDS: CHOLECALCIFEROL 400 UNIT TABLET PO SCH (09:02)
[2019-12-15] MEDS: ALPRAZolam 0.25 MG TABLET PO PRN (09:02)
[2019-12-15] MEDS: ZINC GLUCONATE 50 MG TABLET PO SCH (09:02)
[2019-12-15] MEDS: ESCITALOPRAM 10 MG TABLET PO SCH (09:03)
[2019-12-15] MEDS: azaTHIOprine 50 MG TABLET PO SCH ×2 (09:03→20:39)
[2019-12-15] MEDS: PYRIDOSTIGMINE 60 MG TABLET PO SCH ×4 (09:03→20:39)
[2019-12-15] MEDS: CHOLESTYRAMINE 4 GM PACK PO SCH (09:03)
[2019-12-15] MEDS: CLOTRIMAZOLE/BETAMETHASONE CREAM 15 GM TUBE TOP SCH ×2 (09:03→20:40)
[2019-12-15] MEDS: CETIRIZINE 10 MG TABLET PO SCH (09:03)
[2019-12-15] MEDS: ASCORBIC ACID 500 MG TABLET PO SCH ×2 (09:03→20:39)
[2019-12-15] MEDS: PIPERACILLIN/TAZOBACTAM 3,375 MG in SODIUM CHLORIDE 0.9% 100 ML IV SCH ×2 (09:15→17:23)
[2019-12-15] MEDS ORDERED: AMIODARONE 150 MG/3 ML VIAL ONE (10:19)
[2019-12-15] MEDS ORDERED: AMIODARONE 450 MG/9 ML VIAL IV ONE (10:19)
[2019-12-15] MEDS ORDERED: AMIODARONE INJ 150 MG in DEXTROSE 5% 100 ML IV ONE (10:20)
[2019-12-15] MEDS ORDERED: ETOMIDATE 20 MG/10 ML VIAL IV ONE ×4 (10:29→11:11)
[2019-12-15] MEDS ORDERED: SUCCINYLCHOLINE 200 MG/10 ML VIAL ONE (10:30)
[2019-12-15] MEDS ORDERED: AMIODARONE INJ 450 MG in DEXTROSE 5% 241 ML IV SCH (10:37)
[2019-12-15] MEDS ORDERED: SUCCINYLCHOLINE 200 MG/10 ML VIAL IV ONE ×4 (10:52→14:22)
[2019-12-15] MEDS: MIDAZOLAM 100 MG in SODIUM CHLORIDE 0.9% 80 ML IV PRN (11:14)
[2019-12-15] MEDS: fentaNYL INJ 1,250 MCG in SODIUM CHLORIDE 0.9% 225 ML IV PRN ×2 (11:14→20:16)
[2019-12-15] MEDS ORDERED: propofoL 200 MG/20 ML VIAL IV ONE ×3 (11:16→11:24)
[2019-12-15] MEDS ORDERED: METOPROLOL TARTRATE 5 MG/5 ML VIAL IV ONE ×2 (11:19→11:20)
[2019-12-15] MEDS ORDERED: SODIUM CHLORIDE 0.9% 1,000 ML IV ONE (11:33)
[2019-12-15] MEDS ORDERED: DIGOXIN 0.5 MG/2 ML AMP IV ONE ×2 (11:38→12:38)
[2019-12-15] MEDS ORDERED: DIGOXIN 0.5 MG/2 ML AMP ONE (11:41)
[2019-12-15 12:02] LABS: ABG HCO3 20.2 MMOL/L (20-26); ABG Oxygen Saturation 90.7 % (95-100); ABG PCO2 66.7 MM HG (35-48); ABG PO2 82.5 MM HG (80-95); ABG TCO2 22.3 MMOL/L (23-27)
[2019-12-15] MEDS: ROCURONIUM 500 MG in SODIUM CHLORIDE 0.9% 500 ML IV PRN (12:15)
[2019-12-15] MEDS ORDERED: NOREPINEPHRINE 4 MG/4 ML VIAL IV ONE (12:19)
[2019-12-15] MEDS ORDERED: NOREPINEPHRINE 8 MG in SODIUM CHLORIDE 0.9% 242 ML IV PRN (12:30)
[2019-12-15] MEDS ORDERED: DIGOXIN 0.5 MG/2 ML AMP IM ONE (12:38)
[2019-12-15 13:28] LABS: ABG Base Excess -6.8 MMOL/L (-2.5-2.5); ABG HCO3 18.8 MMOL/L (20-26); ABG Oxygen Saturation 86.8 % (95-100); ABG PO2 73.4 MM HG (80-95); ABG TCO2 22.4 MMOL/L (23-27)
[2019-12-15 13:30] LABS: ABG PCO2 73.1 MM HG (35-48); ABG PH 7.153 (7.35-7.45)
[2019-12-15] MEDS ORDERED: ROCURONIUM 100 MG/10 ML VIAL IV ONE ×2 (14:13→14:15)
[2019-12-15 18:01] LABS: ABG Base Excess -6.4 MMOL/L (-2.5-2.5); ABG HCO3 19.2 MMOL/L (20-26); ABG Oxygen Saturation 91.3 % (95-100); ABG PO2 86.8 MM HG (80-95); ABG TCO2 23.6 MMOL/L (23-27)
[2019-12-15 18:06] LABS: ABG PH 7.139 (7.35-7.45)
[2019-12-15 18:07] LABS: ABG PCO2 79.6 MM HG (35-48)
[2019-12-15] MEDS: AMIODARONE INJ 450 MG in DEXTROSE 5% 241 ML IV SCH (19:57)
[2019-12-15] MEDS: MIRTAZAPINE 15 MG TABLET PO SCH (20:39)
[2019-12-15] MEDS: ENOXAPARIN 150 MG/ML SYRINGE SUBCUT SCH (20:40)
[2019-12-16] MEDS: ALBUTEROL INHALER 18 GM INH SCH ×4 (01:14→18:29)
[2019-12-16] MEDS: PIPERACILLIN/TAZOBACTAM 3,375 MG in SODIUM CHLORIDE 0.9% 100 ML IV SCH ×3 (01:24→17:10)
[2019-12-16] MEDS: methylPREDNISolone SOD SUC 40 MG/1 ML VIAL IV SCH ×3 (02:09→18:29)
[2019-12-16] MEDS: ROCURONIUM 500 MG in SODIUM CHLORIDE 0.9% 500 ML IV PRN ×2 (02:09→15:23)
[2019-12-16] MEDS: MIDAZOLAM 100 MG in SODIUM CHLORIDE 0.9% 80 ML IV PRN (03:46)
[2019-12-16 03:55] LABS: Basophils # 0.1 10*3/uL (0.0-0.2); Basophils % 0.3 % (0.0-0.8); Hematocrit 54.8 VOL% (42.0-52.0); Hemoglobin 17.2 GM/DL (14.0-18.0); Immature Granulocytes % 2.8 %; Immature Granulocytes Absolute 1.03 #; Lymphocytes # 0.6 10*3/uL (1.4-4.0); Lymphocytes % 1.6 % (21.2-54.2); Mean Corpuscular HGB Conc 31.4 GM/DL (32-36); Mean Corpuscular Volume 92.9 FL (87-102); Monocytes % 4.1 % (1.7-12.7); Neutrophils % 91.2 % (38.7-73.9); Platelet Count 505 T/CUMM (130-400); Red Cell Distribution Width 13.2 % (9.3-17.3); White Blood Count 37.4 T/CUMM (4-12)
[2019-12-16 04:15] LABS: Band Neutrophils 1 % (0-10); Lymphocytes 3 % (20-55); Platelet Estimate Adequate; Segmented Neutrophils 89 % (50-85); Total Cells Counted 100
[2019-12-16 04:33] LABS: Calcium 8.5 MG/DL (8.5-10.1); Osmolality,Calculated 293.7 MOS/KG (273-304)
[2019-12-16 04:45] LABS: ABG Base Excess -4.6 MMOL/L (-2.5-2.5); ABG HCO3 25.7 MMOL/L (20-26); ABG Oxygen Saturation 91.7 % (95-100); ABG PO2 78.4 MM HG (80-95); Allen Test Positive; Pt O2 Delivery Device Ventilator
[2019-12-16 04:47] LABS: ABG PCO2 72.2 MM HG (35-48)
[2019-12-16] MEDS ORDERED: SODIUM BICARBONATE 50 MEQ/50 ML VIAL IV ONE (06:13)
[2019-12-16] MEDS ORDERED: INSULIN REGULAR 100 UNIT/ML IV ONE ×2 (06:13→15:40)
[2019-12-16] MEDS ORDERED: CALCIUM GLUCONATE 1,000 MG in SODIUM CHLORIDE 0.9% 100 ML IV ONE ×2 (06:14→15:40)
[2019-12-16] MEDS: LEVOTHYROXINE 100 MCG TABLET PO SCH (06:15)
[2019-12-16] MEDS: fentaNYL INJ 1,250 MCG in SODIUM CHLORIDE 0.9% 225 ML IV PRN ×3 (06:15→23:15)
[2019-12-16] MEDS: AMIODARONE INJ 450 MG in DEXTROSE 5% 241 ML IV SCH ×2 (08:37→11:22)
[2019-12-16] MEDS: CHOLECALCIFEROL 400 UNIT TABLET PO SCH (09:01)
[2019-12-16] MEDS: ASCORBIC ACID 500 MG TABLET PO SCH ×2 (09:01→20:09)
[2019-12-16] MEDS: azaTHIOprine 50 MG TABLET PO SCH ×2 (09:01→20:09)
[2019-12-16] MEDS: CETIRIZINE 10 MG TABLET PO SCH (09:01)
[2019-12-16] MEDS: ESCITALOPRAM 10 MG TABLET PO SCH (09:01)
[2019-12-16] MEDS: ENOXAPARIN 150 MG/ML SYRINGE SUBCUT SCH ×2 (09:02→20:09)
[2019-12-16] MEDS: NYSTATIN 500,000 UNIT/5 ML UDCUP SWISH/SWAL SCH (09:02)
[2019-12-16] MEDS: ZINC GLUCONATE 50 MG TABLET PO SCH (09:02)
[2019-12-16] MEDS: ASPIRIN EC 81 MG TABLET PO SCH (09:02)
[2019-12-16] MEDS: CHOLESTYRAMINE 4 GM PACK PO SCH (09:02)
[2019-12-16] MEDS: FAMOTIDINE 20 MG TABLET PO SCH ×2 (09:02→20:09)
[2019-12-16] MEDS: CLOTRIMAZOLE/BETAMETHASONE CREAM 15 GM TUBE TOP SCH ×2 (09:02→20:10)
[2019-12-16] MEDS: PYRIDOSTIGMINE 60 MG TABLET PO SCH ×4 (09:02→20:08)
[2019-12-16] MEDS: ACETAMINOPHEN 325 MG TABLET PO PRN ×3 (09:20→21:41)
[2019-12-16] MEDS: ZINC OXIDE PASTE 113 GM TUBE TOP SCH ×2 (09:20→20:10)
[2019-12-16] MEDS ORDERED: SODIUM CHLORIDE 0.9% 1,000 ML IV ONE ×2 (10:24→16:08)
[2019-12-16] MEDS ORDERED: SODIUM POLYSTYRENE SULFATE 15 GM/60 ML BOTTLE PO ONE (11:00)
[2019-12-16 11:56] LABS: Bilirubin,Urine Negative (Negative); Blood, Urine Negative (Negative); Glucose,Urine (UA) Negative (Negative); Granular Casts,Urine 15 /LPF (0-1); Ketones,Urine Negative (Negative); Mucus,Urine Occasional /LPF (Occasional); Nitrite,Urine Negative (Negative); Protein,Urine 30 MG/DL; RBC,Urine 31 /HPF (0-4); Squamous Epithelial Cell,Urine Occasional /HPF (0-10); Urine Appearance CLOUDY (Clear); Urine Color Amber (Yellow); Urine Specific Gravity 1.018 (1.001-1.035); WBC,Urine 20 /HPF (0-6)
[2019-12-16] MEDS: SODIUM CHLORIDE 0.9% 1,000 ML IV SCH (12:20)
[2019-12-16 14:33] LABS: ABG Base Excess -4.1 MMOL/L (-2.5-2.5); ABG HCO3 20.9 MMOL/L (20-26); ABG PO2 82.9 MM HG (80-95); ABG TCO2 27.3 MMOL/L (23-27)
[2019-12-16 14:35] LABS: ABG PCO2 94.7 MM HG (35-48)
[2019-12-16 15:36] LABS: Calcium 8.3 MG/DL (8.5-10.1); Osmolality,Calculated 304.1 MOS/KG (273-304)
[2019-12-16] MEDS ORDERED: DEXTROSE 50% 25 GM/50 ML VIAL IV ONE (15:40)
[2019-12-16] MEDS ORDERED: SODIUM POLYSTYRENE SULFATE 15 GM/60 ML BOTTLE RECTAL ONE (15:40)
[2019-12-16] MEDS: NOREPINEPHRINE 8 MG in SODIUM CHLORIDE 0.9% 242 ML IV PRN (16:40)
[2019-12-16 17:00] LABS: ABG Base Excess -3.6 MMOL/L (-2.5-2.5); ABG HCO3 21.4 MMOL/L (20-26); ABG Oxygen Saturation 95.1 % (95-100); ABG PO2 86.6 MM HG (80-95); ABG TCO2 24.4 MMOL/L (23-27)
[2019-12-16 17:12] LABS: ABG PCO2 72.1 MM HG (35-48)
[2019-12-17] MEDS: AMIODARONE INJ 450 MG in DEXTROSE 5% 241 ML IV SCH ×2 (00:35→03:15)
[2019-12-17] MEDS ORDERED: IBUPROFEN 100 MG/5 ML UDCUP PO PRN (01:18)
[2019-12-17] MEDS: ACETAMINOPHEN 325 MG TABLET PO PRN ×4 (01:35→20:44)
[2019-12-17] MEDS: SODIUM CHLORIDE 0.9% 1,000 ML IV SCH ×2 (01:35→16:10)
[2019-12-17] MEDS: ALBUTEROL INHALER 18 GM INH SCH ×4 (01:35→18:33)
[2019-12-17] MEDS: PIPERACILLIN/TAZOBACTAM 3,375 MG in SODIUM CHLORIDE 0.9% 100 ML IV SCH ×3 (01:35→18:33)
[2019-12-17] MEDS: methylPREDNISolone SOD SUC 40 MG/1 ML VIAL IV SCH ×3 (03:58→18:33)
[2019-12-17 04:18] LABS: Basophils # 0.1 10*3/uL (0.0-0.2); Basophils % 0.2 % (0.0-0.8); Hematocrit 48.9 VOL% (42.0-52.0); Hemoglobin 15.2 GM/DL (14.0-18.0); Immature Granulocytes % 1.8 %; Immature Granulocytes Absolute 0.47 #; Lymphocytes # 0.7 10*3/uL (1.4-4.0); Lymphocytes % 2.5 % (21.2-54.2); Mean Corpuscular HGB Conc 31.1 GM/DL (32-36); Mean Platelet Volume 10.5 FL (9.6-12.0); Monocytes % 6.7 % (1.7-12.7); Neutrophils % 88.8 % (38.7-73.9); Platelet Count 379 T/CUMM (130-400); Red Blood Count 5.15 MC/CUMM (3.8-5.5); Red Cell Distribution Width 13.9 % (9.3-17.3); White Blood Count 25.8 T/CUMM (4-12)
[2019-12-17] MEDS: MIDAZOLAM 100 MG in SODIUM CHLORIDE 0.9% 80 ML IV PRN (04:24)
[2019-12-17] MEDS: ROCURONIUM 500 MG in SODIUM CHLORIDE 0.9% 500 ML IV PRN ×2 (04:25→21:41)
[2019-12-17 04:36] LABS: ABG Base Excess -3.1 MMOL/L (-2.5-2.5); ABG HCO3 25.9 MMOL/L (20-26); ABG Oxygen Saturation 92.1 % (95-100); ABG PCO2 63.2 MM HG (35-48); ABG PH 7.231 (7.35-7.45); ABG PO2 66.2 MM HG (80-95); ABG TCO2 27.9 MMOL/L (23-27); Allen Test Positive; Pt O2 Delivery Device Ventilator
[2019-12-17 04:38] LABS: Albumin 1.9 G/DL (3.4-5.0); Bilirubin,Total 1.2 MG/DL (0.2-1.0); Calcium 7.8 MG/DL (8.5-10.1); Osmolality,Calculated 309.8 MOS/KG (273-304); Total Protein 5.4 G/DL (6.4-8.3)
[2019-12-17 04:44] LABS: Band Neutrophils 1 % (0-10); Lymphocytes 5 % (20-55); Segmented Neutrophils 89 % (50-85); Total Cells Counted 100
[2019-12-17 04:45] LABS: Platelet Estimate Adequate
[2019-12-17] MEDS: LEVOTHYROXINE 100 MCG TABLET PO SCH (06:34)
[2019-12-17] MEDS: ESCITALOPRAM 10 MG TABLET PO SCH (08:49)
[2019-12-17] MEDS: azaTHIOprine 50 MG TABLET PO SCH ×2 (08:49→20:40)
[2019-12-17] MEDS: CHOLECALCIFEROL 400 UNIT TABLET PO SCH (08:49)
[2019-12-17] MEDS: ZINC GLUCONATE 50 MG TABLET PO SCH (08:49)
[2019-12-17] MEDS: ASPIRIN EC 81 MG TABLET PO SCH (08:50)
[2019-12-17] MEDS: CETIRIZINE 10 MG TABLET PO SCH (08:50)
[2019-12-17] MEDS: PYRIDOSTIGMINE 60 MG TABLET PO SCH ×4 (08:50→20:40)
[2019-12-17] MEDS: FAMOTIDINE 20 MG TABLET PO SCH ×2 (08:50→20:40)
[2019-12-17] MEDS: ENOXAPARIN 150 MG/ML SYRINGE SUBCUT SCH ×2 (08:50→20:39)
[2019-12-17] MEDS: ZINC OXIDE PASTE 113 GM TUBE TOP SCH ×2 (08:51→20:40)
[2019-12-17] MEDS: ASCORBIC ACID 500 MG TABLET PO SCH ×2 (08:51→20:40)
[2019-12-17] MEDS: CLOTRIMAZOLE/BETAMETHASONE CREAM 15 GM TUBE TOP SCH ×2 (08:51→20:40)
[2019-12-17] MEDS ORDERED: LEVOTHYROXINE 100 MCG TABLET PO SCH (09:24)
[2019-12-17] MEDS: fentaNYL INJ 1,250 MCG in SODIUM CHLORIDE 0.9% 225 ML IV PRN ×2 (12:11→21:42)
[2019-12-17] MEDS: NOREPINEPHRINE 8 MG in SODIUM CHLORIDE 0.9% 242 ML IV PRN ×4 (12:31→21:41)
[2019-12-17] MEDS ORDERED: VANCOMYCIN INJ 2,000 MG in SODIUM CHLORIDE 0.9% 500 ML IV SCH (16:00)
[2019-12-17] MEDS: HYDROCORTISONE 100 MG VIAL IV SCH (16:06)
[2019-12-17] MEDS ORDERED: NOREPINEPHRINE 4 MG/4 ML VIAL IV ONE ×2 (18:13→21:36)
[2019-12-17] MEDS: PHENYLEPHRINE DRIP 40 MG/250 ML PREMIX IV PRN ×2 (19:23→22:16)
[2019-12-17] MEDS: AMIODARONE 200 MG TABLET PO SCH (20:40)
[2019-12-18] MEDS: HYDROCORTISONE 100 MG VIAL IV SCH ×2 (00:14→06:24)
[2019-12-18] MEDS: PIPERACILLIN/TAZOBACTAM 3,375 MG in SODIUM CHLORIDE 0.9% 100 ML IV SCH ×2 (00:15→09:43)
[2019-12-18] MEDS: ALBUTEROL INHALER 18 GM INH SCH ×2 (00:25→06:07)
[2019-12-18] MEDS: NOREPINEPHRINE 8 MG in SODIUM CHLORIDE 0.9% 242 ML IV PRN (01:29)
[2019-12-18] MEDS: PHENYLEPHRINE DRIP 40 MG/250 ML PREMIX IV PRN (01:29)
[2019-12-18] MEDS: methylPREDNISolone SOD SUC 40 MG/1 ML VIAL IV SCH ×2 (03:06→11:47)
[2019-12-18] MEDS ORDERED: NOREPINEPHRINE 16 MG in SODIUM CHLORIDE 0.9% 234 ML IV PRN (03:30)
[2019-12-18] MEDS ORDERED: PHENYLEPHRINE INJ 160 MG in SODIUM CHLORIDE 0.9% 234 ML IV PRN (03:30)
[2019-12-18 04:31] LABS: Allen Test Positive; Pt O2 Delivery Device Ventilator
[2019-12-18] MEDS: SODIUM CHLORIDE 0.9% 1,000 ML IV SCH ×2 (04:31→09:47)
[2019-12-18 04:32] LABS: ABG Base Excess -7.8 MMOL/L (-2.5-2.5); ABG HCO3 17.2 MMOL/L (20-26); ABG Oxygen Saturation 44.6 % (95-100); ABG TCO2 24.4 MMOL/L (23-27)
[2019-12-18 04:36] LABS: ABG PCO2 87.8 MM HG (35-48); ABG PH 7.084 (7.35-7.45)
[2019-12-18 04:37] LABS: ABG PO2 27.8 MM HG (80-95)
[2019-12-18 04:58] LABS: Basophils % 0.1 % (0.0-0.8); Eosinophils % 0.1 % (0.00-10.9); Hematocrit 49.1 VOL% (42.0-52.0); Hemoglobin 14.7 GM/DL (14.0-18.0); Immature Granulocytes % 2.3 %; Immature Granulocytes Absolute 0.35 #; Lymphocytes # 0.6 10*3/uL (1.4-4.0); Mean Corpuscular HGB Conc 29.9 GM/DL (32-36); Mean Corpuscular Volume 97.8 FL (87-102); Monocytes % 6.9 % (1.7-12.7); NRBC # 0.08 10*3/uL; Neutrophils % 86.6 % (38.7-73.9); Platelet Count 339 T/CUMM (130-400); Red Blood Count 5.02 MC/CUMM (3.8-5.5); Red Cell Distribution Width 14.7 % (9.3-17.3); White Blood Count 15.4 T/CUMM (4-12)
[2019-12-18 05:03] LABS: Albumin 1.8 G/DL (3.4-5.0); Calcium 7.4 MG/DL (8.5-10.1); Ferritin 7895.9 ng/ml (26-388); Osmolality,Calculated 321.7 MOS/KG (273-304); Total Protein 5.4 G/DL (6.4-8.3)
[2019-12-18 05:06] LABS: ABG HCO3 17.7 MMOL/L (20-26); ABG Oxygen Saturation 80.5 % (95-100); ABG PO2 52.1 MM HG (80-95); ABG TCO2 21.9 MMOL/L (23-27)
[2019-12-18 05:08] LABS: ABG PCO2 73.3 MM HG (35-48); ABG PH 7.125 (7.35-7.45)
[2019-12-18 05:15] LABS: Lymphocytes 3 % (20-55); Nucleated Red Blood Cells 1 (0-5); Platelet Estimate Adequate; Segmented Neutrophils 91 % (50-85); Total Cells Counted 100
[2019-12-18] MEDS: fentaNYL INJ 1,250 MCG in SODIUM CHLORIDE 0.9% 225 ML IV PRN (07:50)
[2019-12-18] MEDS: MIDAZOLAM 100 MG in SODIUM CHLORIDE 0.9% 80 ML IV PRN (07:50)
[2019-12-18] MEDS ORDERED: VANCOMYCIN INJ 2,000 MG in SODIUM CHLORIDE 0.9% 500 ML IV PRN (08:00)
[2019-12-18] MEDS: ASCORBIC ACID 500 MG TABLET PO SCH (09:41)
[2019-12-18] MEDS: ASPIRIN EC 81 MG TABLET PO SCH (09:41)
[2019-12-18] MEDS: azaTHIOprine 50 MG TABLET PO SCH (09:41)
[2019-12-18] MEDS: CHOLECALCIFEROL 400 UNIT TABLET PO SCH (09:42)
[2019-12-18] MEDS: ESCITALOPRAM 10 MG TABLET PO SCH (09:42)
[2019-12-18] MEDS: AMIODARONE 200 MG TABLET PO SCH (09:42)
[2019-12-18] MEDS: PYRIDOSTIGMINE 60 MG TABLET PO SCH (09:42)
[2019-12-18] MEDS: CETIRIZINE 10 MG TABLET PO SCH (09:42)
[2019-12-18] MEDS: ZINC GLUCONATE 50 MG TABLET PO SCH (09:42)
[2019-12-18] MEDS: FAMOTIDINE 20 MG TABLET PO SCH (09:42)
[2019-12-18] MEDS: ZINC OXIDE PASTE 113 GM TUBE TOP SCH (09:43)
[2019-12-18] MEDS: CLOTRIMAZOLE/BETAMETHASONE CREAM 15 GM TUBE TOP SCH (09:43)
[2019-12-18] MEDS: ENOXAPARIN 150 MG/ML SYRINGE SUBCUT SCH (09:43)
[2019-12-18] MEDS ORDERED: MORPHINE 4 MG/1 ML VIAL IV PRN (10:15)
[2019-12-18] MEDS ORDERED: LORazepam 2 MG/1 ML VIAL IV PRN (10:15)
[2019-12-18] MEDS ORDERED: LORazepam 2 MG/1 ML VIAL ONE (10:24)
== END 2019-12-18 10:43 | disposition expired | DRG 208 ==
LOC: N.ED 12:59 → N.EDINP 15:19 → SUATTDRO 15:19 → N.CC 16:48
PROVIDERS: ADMIT Family Medicine; ATTEND Internal Medicine